=== PATIENT | female | born 1955 | race Two or more races ===

== ENCOUNTER 2018-10-22 08:38 | Emergency (ER) | payer OTHER ==
[2018-10-22 09:04] VITALS: TEMP 97.7; BMI 37.2
[2018-10-22] MEDS ORDERED: SODIUM CHLORIDE 1,000 ML IV STA (09:33)
[2018-10-22] MEDS ORDERED: ACETAMINOPHEN 325 MG TABLET (FP) PO ONE (09:36)
[2018-10-22] MEDS ORDERED: LORazepam 2 MG/ML SDV VIAL ONE (09:37)
[2018-10-22] MEDS ORDERED: ACETAMINOPHEN 325 MG TABLET (FP) ONE (09:53)
[2018-10-22 09:58] LABS: BASO % 0.6 % (0-2.0); EOS % 1.6 % (0-4.5); HEMATOCRIT 39.9 % (32.4-45.2); HEMOGLOBIN 13.7 GM/dL (10.7-15.3); LYMPH % 29.8 % (8-40); MCH 31.7 pg (25.7-33.7); MCHC 34.3 g/dl (32.0-36.0); MEAN CELL VOLUME 92.6 fl (80-96); MEAN PLT VOLUME 8.2 fl (7.5-11.1); MONO % 6.6 % (3.8-10.2); NEUT % 61.4 % (42.8-82.8); PLATELET COUNT 213 K/MM3 (134-434); RBC 4.31 M/mm3 (3.60-5.2); RDW 14.3 % (11.6-15.6); WHITE BLOOD COUNT 5.8 K/mm3 (4.0-10.0)
--- NOTE | 2018-10-22 10:08 | PDOC ---
Documentation entered by Joshua Darnell SCRIBE, acting as scribe for Bernadine Torres MD. Bernadine Torres MD: This documentation has been prepared by the Mann gatic[employer] Joel, SCRIBE, under my direction and personally reviewed by me in its entirety. I confirm that the documentation accurately reflects all work, treatment, procedures, and medical decision making performed by me. History of Present Illness - General Chief Complaint: Lightheaded Stated Complaint: DIZZINESS,WEAKNESS Time Seen by Provider: 10/22/18 09:10 History Source: Patient Exam Limitations: No Limitations - History of Present Illness Initial Comments: 10/22/18 10:10 The patient is a 63 year old female with a significant PMH of vertigo, HTN, pre- diabetes, hyperlipidemia, fibromyalgia, sciatica and arthritis who presents to the emergency department for evaluation of acute onset of vertigo, dizziness and nausea beginning approximately 5 hours ago. The patient reports waking up at about 4am and trying to get off the bed when she experienced room-spinning sensation with associated epigastric pain and nausea. She reports taking Meclizine to some relief that she had leftover from a 07/2018 visit for similar episode of vertigo. The patient endorses left sided neck pain with radiation to the occipital region, dry throat, left ear pain, cough, bilateral eye pain with associated blurry vision, and increased urinary frequency since this morning ( but has been drinking water). The patient notes she was told she had vertigo in 07/2018, which she was prescribed Meclizine for the symptoms which she takes as needed. The patient also notes an episode of palpitations about 3 days ago that lasted a few minutes, and also experienced an episode of anterior chest pressure shortly after presentation to the ED. Denies fever, chills, SOB, weakness, V, D, bladder and bowel problems, leg swelling, No sick contacts or travel. No new changes in medications. No suspicious food intake. no environmental triggers. no stressors. denies falls or trauma/injuries Allergies: None Past Medical History: as documented in EMR/HPI Social history: Lives with family. No tobacco, ETOH or drug use. Surgical history: Parathyroidectomy. Meds: as documented in EMR PMD: Dr. Black 10/22/18 10:49 10/22/18 10:52 10/22/18 10:52 Past History - Past Medical History Allergies/Adverse Reactions: Allergies Allergy/AdvReac Type Severity Reaction Status Date / Time No Known Allergies Allergy Verified 10/22/18 09:33 Home Medications: Ambulatory Orders Cyclobenzaprine HCl [Flexeril 10 mg] 10 mg PO TID PRN #15 tablet 10/22/18 COPD: No HTN: Yes Hypercholesterolemia: Yes Other medical history: vertigo, fibronyalsia - Immunization History Immunization Up to Date: Yes - Suicide/Smoking/Psychosocial Hx Smoking History: Never smoked Hx Alcohol Use: No Drug/Substance Use Hx: No Review of Systems - Review of Systems Able to Perform ROS?: Yes Comments:: 10/22/18 10:15 Constitutional: no fevers or chills. HEENT: (+) Blurry vision. (+) Bilateral eye pain. +ear pain. no headache. No congestion. No hearing disturbances. CVS: (+) Anterior chest pressure. + palpitations. no syncope. Resp: (+) Cough. no sob. Gastrointestinal: (+) Epigastric pain. (+) Nausea. no vomiting. no diarrhea. Genitourinary: (+) Increased urinary frequency. no hematuria. MUSCULOSKELETAL: (+) Neck pain with radiation to occipital region. (+) Chronic lower back pain from sciatica. +right knee pain. No joint pain and swelling. SKIN: no redness or skin changes, no discharge, no rash. No wounds. Hematologic: no easy bruising/bleeding. NEUROLOGIC: (+) Dizziness. No headache, LOC or altered mental status. No weakness, numbness or tingling. Psych: no anxiety or depression Allergic/Immunologic: no allergies All other systems reviewed and negative, or as documented in HPI. 10/22/18 10:51 *Physical Exam - Vital Signs Last Vital Signs Temp Pulse Resp BP Pulse Ox 97.7 F 62 18 148/85 99 10/22/18 09:01 10/22/18 09:01 10/22/18 09:01 10/22/18 09:01 10/22/18 09:01 - Physical Exam Comments: 10/22/18 10:17 General: Well appearing, awake and alert, NAD. HEENT: NCAT, PERRL, EOMI, No nystagmus. clear conjunctiva, anicteric, moist mucus membranes, clear oropharynx, no oral lesions.. Neck: neck supple, FROM Resp: CTAB, normal and even respirations, no respiratory distress CVS: RRR, no murmurs, 2+ peripheral pulses throughout, no peripheral edema Abdomen: soft, NTND, no peritoneal signs. Back: nontender, normal inspection and ROM MSK: (+) Upper thoracic muscular tenderness to palpation. (+) Diffuse lower back pain tenderness. (+) Left trapezius tenderness. no edema, PITT x4, ROM intact. No clubbing or cyanosis. normal bulk and tone. Neuro: alert, no focal neuro deficits, oriented to person time and place. No carotid bruit, CN II-XII grossly intact. Strength prox and distally 5/5 throughout. Sensation grossly intact to light touch. PITT x4. No cerebellar signs , no dysmetria, bilateral finger to nose and heel to renteria equal and symmetric. Speech clear. gait stable. Psych: calm and cooperative Skin: warm and well perfused, cap refill <2 sec, normal color 10/22/18 10:51 Heart Score/ECG Review #1 ECG reviewed & interpreted by me at: 09:40 General ECG Interpretation: Sinus Rhythm, Normal Rate, Normal Intervals Compared to previous ECG there are: Previous ECG unavail 10/22/18 10:07 EKG normal sinus rhythm at 60 bpm, no interval abnormalities, narrow QRS, ST and T wave segments and morphology normal. Nonspecific T wave abnormalities with TWI in inferior leads III, AVF ED Treatment Course - LABORATORY CBC & Chemistry Diagram: 10/22/18 09:30 10/22/18 09:30 - RADIOLOGY Radiology Studies Ordered: Category Date Time Status CHEST PA & LAT [RAD] Stat Radiology 10/22/18 09:33 Ordered - Medications Given in the ED: ED Medications Discontinued Medications Generic Name Dose Route Start Last Admin Trade Name Freq PRN Reason Stop Dose Admin Acetaminophen 975 mg 10/22/18 09:36 10/22/18 09:54 Tylenol - PO 10/22/18 09:37 975 mg ONCE ONE Administration Lorazepam 1 mg 10/22/18 09:35 10/22/18 09:49 Ativan Injection - IVPUSH 10/22/18 09:36 1 mg ONCE ONE Administration Medical Decision Making - Medical Decision Making 10/22/18 10:06 See HPI for details. Prior notes reviewed, including admissions, discharges and consultations. Vital signs reviewed, wnl. Vital Signs Temp Pulse Resp BP Pulse Ox 97.7 F 62 18 148/85 99 10/22/18 09:01 10/22/18 09:01 10/22/18 09:01 10/22/18 09:01 10/22/18 09:01 DDX vertigo, BPPV, labrynthitis, ACS, arrhythmia, angina, anemia, electrolyte/ metabolic derangements. back strain/spasm. msk strain. no infectious etiology. laboratory results and imaging reviewed, basic labs and lytes wnl, notable for normal LFts CXR_no acute chest pathology Cardiac panel_neg x1, reassuring. will need serial trop with chest pressure here. EKG normal sinus rhythm at 60 bpm, no interval abnormalities, narrow QRS, ST and T wave segments and morphology normal. Nonspecific T wave abnormalities with TWI in inferior leads III, AVF ED course -interventions: analgesia, IV ativan for vertigo/muscle spasms - back pain very reproducible, over left lateral trapezius as well. sciatica was induced with msk movements - neuro intact, no focal deficits, no ataxia, ambulatory, no focal findings. no imaging indicated at this time, as doubt central etiology of vertigo - 2 trops/EKG - unchanged, repeat EKG unchanged, nonspecific T wave abnormalities, no elevations of ST segments - on reassessment, symptoms improved, ambulatory. no cp or sob, comfortable with discharge and f/u cards/neuro for vertigo/chest pain - flexeril prn for muscle relaxants. Pt to be discharged in stable condition. Patient and family made aware of clinical impression, treatment recommendations and disposition plan, return precautions discussed (including but not limited to new or persistent/worsening symptoms, pain, fevers, or signs of infection, chest pain, respiratory distress , inability to tolerate oral intake, dehydration, syncope, or neurologic changes ). Follow up with PMD and/or specialists as recommended, follow up information provided, take medications as instructed for duration of time. continue with supportive care, avoid triggers and precipitants. All questions answered to patient's satisfaction and expressed understanding and comfort with this. At the time of discharge, the patient is alert, clinically improved, tolerating po and verbalizes understanding of instructions, satisfied with the care received and felt comfortable with the plan. Patient does not suffer from an acute life- threatening medical condition at this time and is safe for outpatient follow- up. 10/22/18 14:43 *DC/Admit/Observation/Transfer Diagnosis at time of Disposition: Vertigo Chest pain Qualifiers: Chest pain type: unspecified Qualified Code(s): R07.9 - Chest pain, unspecified Back pain Qualifiers: Back pain location: back pain in unspecified location Chronicity: unspecified Back pain laterality: unspecified Qualified Code(s): M54.9 - Dorsalgia, unspecified Trapezius muscle strain Qualifiers: Encounter type: initial encounter Laterality: unspecified laterality Qualified Code(s): S46.819A - Strain of other muscles, fascia and tendons at shoulder and upper arm level, unspecified arm, initial encounter - Discharge Dispostion Disposition: HOME Condition at time of disposition: Good Decision to Admit order: No - Prescriptions Prescriptions: Cyclobenzaprine HCl [Flexeril 10 mg] 10 mg PO TID PRN #15 tablet PRN Reason: Muscle Spasms - Referrals Referrals: Damion Black MD [Non Staff, Medical] - Leonid Valentin MD [Staff Physician] - Karl Cruz MD [Staff Physician] - Mario Valles DO [Staff Physician] - Blaa Lund MD [Staff Physician] - Zia Timmons MD [Staff Physician] - - Patient Instructions Printed Discharge Instructions: DI for Vertigo, DI for Chest Pain, DI for Thoracic Back Pain, DI for Low Back Pain, DI for Sciatica Additional Instructions: 1) Please follow-up with your primary care doctor in the next 1-2 days. Please call tomorrow for for any urgent issues. Neurologist referrals given for management of your vertigo/dizziness cardiologists also given for your chest pain 2) You were given a copy of the tests performed today. Please bring the results with you and review them with your primary care doctor. Your laboratory / imaging results were normal, including your cardiac enzymes 3) If you have any worsening of symptoms or any other concerns please return to the ED immediately. Return if worsening symptoms including fevers, headache, vomiting, visual or hearing disturbances, abdominal pain, chest pain, shortness of breath, syncope, dehydration, inability to take things by mouth/vomiting, altered mental status, or worsening concerning symptoms. 4) Please continue taking your home medications as directed. your medications on discharge include Meclizine (which you have at home) take this three times a day as needed for dizziness . side effects may include upset stomach, abdominal pain, vomiting, or diarrhea. do not drink alcohol with your medications. this can cause you to feel sleepy as well, so avoid driving or operating machinery Stay well hydrated and rest adequately. Make an appointment. If you cannot follow-up with your primary care doctor please return to the ED 1) Leona un seguimiento con eisenberg mdico de atencin primaria en los prximos 1-2 woodson. Llame maana para cualquier problema urgente. Referencias de neurlogos para el manejo de vrtigo / mareos. cardilogos tambin administrados para el dolor en el pecho 2) Le dieron manuela copia de las pruebas realizadas hoy. Traiga los resultados con usted y revselos con eisenberg mdico de atencin primaria. Los resultados de eisenberg laboratorio / imagen fueron normales, incluidas satya enzimas cardacas. 3) Si tiene algn empeoramiento de los sntomas o cualquier otra inquietud, regrese al servicio de urgencias de inmediato. Regrese si empeora los sntomas, karly fiebre, dolor de yen, vmitos, trastornos visuales o auditivos, dolor abdominal, dolor en el pecho, falta de aliento, sncope, deshidratacin, incapacidad para bibiana cosas por la boca / vmitos, estado mental alterado o empeoramiento de los sntomas. 4) Contine tomando satya medicamentos caseros segn las indicaciones. satya medicamentos al hussain incluyen Meclizine (que tiene en casa) tome esto malka veces al da segn sea necesario para mareos. Los efectos secundarios pueden incluir malestar estomacal, dolor abdominal, vmitos o diarrea. No tome alcohol con satya medicamentos. esto tambin puede causarle sueo, as que evite conducir u operar maquinaria Mantngase nabeel hidratado y descanse adecuadamente. Leona manuela freddie Si no puede hacer un seguimiento con eisenberg mdico de atencin primaria, regrese al servicio de urgencias Print Language: MONGOLIAN - Post Discharge Activity
[2018-10-22 10:21] LABS: ALBUMIN 3.8 g/dl (3.4-5.0); BILIRUBIN,TOTAL 0.4 mg/dL (0.2-1); BLOOD UREA NITROGEN 12.3 mg/dL (7-18); CALCIUM 9.3 mg/dL (8.5-10.1); CREATININE 0.5 mg/dL (0.55-1.3); POTASSIUM 4.6 mmol/L (3.5-5.1); TOT PROT 7.4 g/dl (6.4-8.2)
--- NOTE | 2018-10-22 14:25 | EKG ---
Test Reason : Blood Pressure : / mmHG Vent. Rate : 060 BPM Atrial Rate : 060 BPM P-R Int : 162 ms QRS Dur : 088 ms QT Int : 426 ms P-R-T Axes : 021 086 -11 degrees QTc Int : 426 ms NORMAL SINUS RHYTHM POSSIBLE LEFT ATRIAL ENLARGEMENT ABNORMAL QRS-T ANGLE, CONSIDER PRIMARY T WAVE ABNORMALITY ABNORMAL ECG NO PREVIOUS ECGS AVAILABLE Confirmed by MAGNOLIA LAUREN MD ([id number]) on 10/22/2018 2:25:15 PM Referred By: Confirmed By:MAGNOLIA LAUREN MD
--- NOTE | 2018-10-22 14:31 | EKG ---
Test Reason : Blood Pressure : / mmHG Vent. Rate : 068 BPM Atrial Rate : 068 BPM P-R Int : 162 ms QRS Dur : 090 ms QT Int : 406 ms P-R-T Axes : 044 -38 093 degrees QTc Int : 431 ms NORMAL SINUS RHYTHM LEFT AXIS DEVIATION NONSPECIFIC T WAVE ABNORMALITY ABNORMAL ECG WHEN COMPARED WITH ECG OF 22-OCT-2018 09:39, QRS AXIS SHIFTED LEFT NON-SPECIFIC CHANGE IN ST SEGMENT IN INFERIOR LEADS T WAVE INVERSION NO LONGER EVIDENT IN INFERIOR LEADS NONSPECIFIC T WAVE ABNORMALITY, WORSE IN LATERAL LEADS Confirmed by XIN LEVINE, MAGNOLIA ([id number]) on 10/22/2018 2:30:48 PM Referred By: Confirmed By:MAGNOLIA LAUREN MD
[2018-10-22 15:26] VITALS: BP 130/71; PULSE 71
--- NOTE | 2018-10-23 14:06 | EKG ---
Test Reason : Blood Pressure : / mmHG Vent. Rate : 067 BPM Atrial Rate : 067 BPM P-R Int : 164 ms QRS Dur : 090 ms QT Int : 372 ms P-R-T Axes : 040 -36 108 degrees QTc Int : 393 ms NORMAL SINUS RHYTHM LEFT AXIS DEVIATION SEPTAL INFARCT , AGE UNDETERMINED ABNORMAL ECG WHEN COMPARED WITH ECG OF 22-OCT-2018 09:39, QRS AXIS SHIFTED LEFT ST NOW DEPRESSED IN INFERIOR LEADS NONSPECIFIC T WAVE ABNORMALITY, WORSE IN LATERAL LEADS Confirmed by CALEB DUKES MD ([id number]) on 10/23/2018 2:06:01 PM Referred By: Confirmed By:CALEB DUKES MD
== END 2018-10-22 15:30 | disposition home or self-care (01) ==
LOC: JER 08:38
PROC: 3E033NZ Introduction of Analgesics, Hypnotics, Sedatives into Peripheral Vein, Percutaneous Approach (ICD-10-PCS; principal; 2018-10-22)
PROC: 3E0337Z Introduction of Electrolytic and Water Balance Substance into Peripheral Vein, Percutaneous Approach (ICD-10-PCS; 2018-10-22)
DX: R42 Dizziness and giddiness (principal); S46.819A Strain of other muscles, fascia and tendons at shoulder and upper arm level, unspecified arm, initial encounter; M54.9 Dorsalgia, unspecified; R07.9 Chest pain, unspecified; X58.XXXA Exposure to other specified factors, initial encounter; Y93.89 Activity, other specified; Y92.89 Other specified places as the place of occurrence of the external cause; R73.03 Prediabetes; I10 Essential (primary) hypertension; E78.5 Hyperlipidemia, unspecified; M54.30 Sciatica, unspecified side
CPT/HCPCS: 36415; 71046-TC-FY; 80053; 83735; 84484; 85025; 93005; 93010; 96361; 96374; 99284-25; J7030

== ENCOUNTER 2018-12-16 11:25 | Inpatient (IN) | payer OTHER ==
--- NOTE | 2018-12-16 12:12 | EKG ---
Test Reason : Blood Pressure : / mmHG Vent. Rate : 069 BPM Atrial Rate : 069 BPM P-R Int : 154 ms QRS Dur : 088 ms QT Int : 458 ms P-R-T Axes : 044 -24 037 degrees QTc Int : 490 ms POOR DATA QUALITY, INTERPRETATION MAY BE ADVERSELY AFFECTED NORMAL SINUS RHYTHM POSSIBLE LEFT ATRIAL ENLARGEMENT NONSPECIFIC T WAVE ABNORMALITY ABNORMAL ECG WHEN COMPARED WITH ECG OF 22-OCT-2018 13:35, NONSPECIFIC T WAVE ABNORMALITY, IMPROVED IN LATERAL LEADS QT HAS LENGTHENED Confirmed by MD Yuki, Abdoul ([id number]) on 12/16/2018 12:12:15 PM Referred By: Confirmed By:Abdoul Mirza MD
--- NOTE | 2018-12-16 13:24 | PDOC ---
History of Present Illness - History of Present Illness Initial Comments: 12/16/18 13:18 63 year old female with PMH significant for vertigo, HTN, HLD, fibromyalgia, and pre-DM. 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 Flores) when she started developing chest pain, and was referred to the ER. She states that she has had intermittent chest pain for the past 4 months, mostly on the left side of her chest, with episodes lasting 2-4 hours, gradual in onset, and dull in nature, reproducible on palpation and non-pleuritic. The chest pain is associated with left hand shooting pain that she has had for the past 9 months. The pain initially began in the 2nd and 3rd fingers of the left hand, radiating up to the elbow, exacerbated by movement of the arm. Her PCP told her that this was a symptom of her Fibromyalgia, and she received and injection in her left elbow 4 months ago, which she claims did not help. Around 5 months ago, the pain began to radiate past her left elbow, all the way to her chest. The pain is associated with some mild SOB and a headache. She also complains of intermittent RUQ and RLQ abdominal pain with lower back pain for the past 3 months. She has associated brown discoloration of the urine , but no associated nausea, vomiting, diarrhea, dysuria, or hematuria. She has been taking Paroxetine since 1996, which she discontinued 2 months ago. She has had no other changes to her medication, and denies any recent illnesses , exposure to sick contacts, or recent travel. <Heath Jones - Last Filed: 12/16/18 16:27> <Bernadine Torres - Last Filed: 12/18/18 09:45> - General Stated Complaint: SENT BY /CHEST PAIN Time Seen by Provider: 12/16/18 12:09 Past History - Past Medical History COPD: No HTN: Yes Hypercholesterolemia: Yes - Immunization History Immunization Up to Date: Yes - Psycho Social/Smoking Cessation Hx Smoking History: Unknown if ever smoked Hx Alcohol Use: No Drug/Substance Use Hx: No <Heath Jones - Last Filed: 12/16/18 16:27> <Bernadine Torres - Last Filed: 12/18/18 09:45> - Past Medical History Allergies/Adverse Reactions: Allergies Allergy/AdvReac Type Severity Reaction Status Date / Time No Known Allergies Allergy Verified 12/16/18 11:43 Home Medications: Ambulatory Orders Amlodipine Besylate [Norvasc -] 5 mg PO DAILY 12/16/18 Duloxetine HCl [Cymbalta] 30 mg PO DAILY 12/16/18 Nortriptyline HCl [Pamelor -] 10 mg PO HS 12/16/18 Paroxetine HCl [Paxil] 20 mg PO DAILY 12/16/18 Polyvinyl Alcohol [Artificial Tears] 1 drop OU ASDIR 12/16/18 Ranitidine [Zantac -] 300 mg PO HS 12/16/18 Simvastatin 40 mg PO HS 12/16/18 Aspirin Coated [Ecotrin -] 81 mg PO DAILY tablet.ec 12/17/18 Review of Systems - Review of Systems Constitutional: No: Symptoms Reported, See HPI, Chills, Diaphoresis, Fever, Loss of Appetite, Malaise, Night Sweats, Weakness, Weight Stable, Unintentional Wgt. Loss, Unexplained wgt Loss, Other HEENTM: No: Symptoms Reported, See HPI, Eye Pain, Blurred Vision, Tearing, Recent change in vision, Double Vision, Cataracts, Ear Pain, Ocular Prothesis, Ear Discharge, Nose Pain, Nose Congestion, Tinnitus, Nose Bleeding, Hearing Loss , Throat Pain, Throat Swelling, Mouth Pain, Dental Problems, Difficulty Swallowing, Mouth Swelling, Other Respiratory: Yes: Shortness of Breath Cardiac (ROS): Yes: Chest Pain, Lightheadedness ABD/GI: Yes: Abdominal cramping : No: Symptoms Reported, See HPI, Burning, Dysuria, Discharge, Frequency, Flank Pain, Hematuria, Incontinence, Pain, Urgency, Testicular Mass, Testicular Swelling, Lesions, Testicular Pain, Other Musculoskeletal: Yes: See HPI Integumentary: No: Symptoms Reported, See HPI, Bruising, Change in Color, Change in Hair/Nails, Dryness, Erythema, Flushing, Lesions, Lumps, Pallor, Pruritus, Rash, Sweating, Other Neurological: Yes: Weakness Psychiatric: No: Anxiety, Depression, Frequent Crying, Stressors, Sleep Pattern Change, Emotional Problems, Mood Swings, Change in Appetite, Other Endocrine: No: Symptoms Reported, See HPI, Excessive Sweating, Flushing, Intolerance to Cold, Intolerance to Heat, Increased Hunger, Increased Thirst, Increased Urine, Unexplained Weight Gain, Unexplained Weight Loss, Change in Weight, Other Hematologic/Lymphatic: No: Symptoms Reported, See HPI, Anemia, Blood Clots, Easy Bleeding, Easy Bruising, Bleeding Diathesis, Lymph Node Abnormalities, Swollen Glands, Other <Heath Jones - Last Filed: 12/16/18 16:27> *Physical Exam - Vital Signs Last Vital Signs Temp Pulse Resp BP Pulse Ox 98.2 F 74 17 139/81 96 12/16/18 11:49 12/16/18 11:49 12/16/18 11:49 12/16/18 11:49 12/16/18 11:49 - Physical Exam Comments: 12/16/18 13:43 General: AOx3, cooperative Eyes: QUAN, EOM intact Nares: patent, no DC Ears: patent, no DC CVS: RRR, S1 S2 appreciated Lungs: B/L clear Abdomen: SOft, tenderness in epigastrium, RUQ, RLQ, suprapubic, Psoas Rovsing and Shah's negative Extremities: No pitting edema Neuro: Motor 4/5 in left arm (due to pain), 5/5 everywhere else Sensations intact B/L CN II-XII intact Cerebellar: No nystagmus, finger to nose, heel to renteria, Romberg, rapid alternating movements all negative <Heath Jones - Last Filed: 12/16/18 16:27> - Vital Signs Last Vital Signs Temp Pulse Resp BP Pulse Ox 98.1 F 84 18 140/104 H 96 12/17/18 14:00 12/17/18 14:00 12/17/18 09:00 12/17/18 14:00 12/17/18 09:00 <Bernadine Torres - Last Filed: 12/18/18 09:45> Heart Score/ECG Review - Electrocardiogram EKG: Normal - Age Age: 45-65 - Risk Factors Risk Factors Heart Score: Yes Hx Hypertension, Yes Positive family hx of cardiac disease, Yes Hx Obesity Based on the list above the patient has:: >/=3 risk factors or Hx atherosclerotic disease - Troponin Troponin: </= normal limit - ECG Intrepretation Rhythm: Regular Rhythm - State University State University: Normal - ST and T Early Repolarization: No Non Specific ST-T Wave changes: No - ECG Impressions Normal ECG: Yes Comment:: 12/16/18 16:27 EKG normal sinus rhythm at 69 bpm, no interval abnormalities, narrow QRS, ST and T wave segments and morphology normal. Nonspecific T wave abnormalities <Heath Jones - Last Filed: 12/16/18 16:27> ED Treatment Course - LABORATORY CBC & Chemistry Diagram: 12/16/18 13:30 12/16/18 13:20 <Heath Jones - Last Filed: 12/16/18 16:27> - LABORATORY CBC & Chemistry Diagram: 12/17/18 06:15 12/17/18 06:15 - ADDITIONAL ORDERS Additional order review: 12/16/18 15:20 Urine Culture - Final Urine - Urine Clean Catch Streptococcus Viridans 12/16/18 13:30 RBC 4.31 MCV 91.9 MCHC 34.1 RDW 13.8 MPV 8.0 Neutrophils % 47.6 D Lymphocytes % 40.5 H D Monocytes % 8.3 Eosinophils % 2.7 Basophils % 0.9 - Medications Given in the ED: ED Medications Discontinued Medications Generic Name Dose Route Start Last Admin Trade Name Freq PRN Reason Stop Dose Admin Amlodipine Besylate 5 mg 12/17/18 10:00 12/17/18 09:26 Norvasc - PO 5 mg DAILY VICTORINO Administration Artificial Tears 1 drop 12/16/18 16:30 12/16/18 18:49 Artificial Tears OU Not Given ASDIR VICTORINO Artificial Tears 1 drop 12/16/18 18:00 12/17/18 14:57 Artificial Tears OU 1 drop QID VICTORINO Administration Aspirin 81 mg 12/17/18 10:00 12/17/18 13:29 Ecotrin - PO 81 mg DAILY VICTORINO Administration Aspirin 81 mg 12/16/18 15:59 12/16/18 16:00 Asa - PO 12/16/18 16:00 81 mg ONCE ONE Administration Atorvastatin Calcium 40 mg 12/16/18 22:00 12/16/18 22:36 Lipitor - PO 40 mg HS VICTORINO Administration Duloxetine HCl 30 mg 12/17/18 10:00 12/17/18 13:29 Cymbalta - PO 30 mg DAILY VICTORINO Administration Nortriptyline HCl 10 mg 12/16/18 22:00 12/16/18 22:36 Pamelor - PO 10 mg HS VICTORINO Administration Paroxetine HCl 20 mg 12/17/18 10:00 12/17/18 13:29 Paxil - PO 20 mg DAILY VICTORINO Administration Pneumococcal Polyvalent Vaccine 0.5 ml 12/17/18 10:00 12/17/18 13:34 Pneumovax - IM 12/17/18 10:01 Not Given .ONCE ONE Ranitidine HCl 300 mg 12/16/18 22:00 12/16/18 22:36 Zantac - PO 300 mg HS VICTORINO Administration <Bernadine Torres - Last Filed: 12/18/18 09:45> Medical Decision Making - Medical Decision Making 12/16/18 13:49 #Chest pain - Trops ordered - Repeat EKG - CXR #Abdominal pain - CBC, CMP - UA, Urine cx - Lipase - Ultrasound RUQ: Borderline hepatomegaly w fatty infiltration vs hepatocellular disease, 1.4cm nonobs stone in R mid kidney, no hydronephrosis 12/16/18 16:18 - Spoke to Dr. Flores who explained that patient was sent from his office because she was unable to have a stress test after she was found to have elevated BP. Will admit and attempt stress test tomorrow - Patient admitted under [facility], spoke to admitting physician <Heath Jones - Last Filed: 12/16/18 16:27> *DC/Admit/Observation/Transfer - Discharge Dispostion Decision to Admit order: Yes <Heath Jones - Last Filed: 12/16/18 16:27> - Discharge Dispostion Decision to Admit order: Yes <Bernadine Torres - Last Filed: 12/18/18 09:45> Diagnosis at time of Disposition: Atypical chest pain - Discharge Dispostion Condition at time of disposition: Good Discharge <Heath Jones - Last Filed: 12/16/18 16:27> - Discharge Information Problems reviewed: Yes <Bernadine Torres - Last Filed: 12/18/18 09:45> - Discharge Information Clinical Impression/Diagnosis: Atypical chest pain Condition: Improved Disposition: HOME
[2018-12-16 13:54] LABS: BASO % 0.9 % (0-2.0); EOS % 2.7 % (0-4.5); HEMATOCRIT 39.6 % (32.4-45.2); HEMOGLOBIN 13.5 GM/dL (10.7-15.3); LYMPH % 40.5 % (8-40); MCH 31.3 pg (25.7-33.7); MCHC 34.1 g/dl (32.0-36.0); MEAN CELL VOLUME 91.9 fl (80-96); MONO % 8.3 % (3.8-10.2); NEUT % 47.6 % (42.8-82.8); PLATELET COUNT 225 K/MM3 (134-434); RBC 4.31 M/mm3 (3.60-5.2); RDW 13.8 % (11.6-15.6); WHITE BLOOD COUNT 6.4 K/mm3 (4.0-10.0)
[2018-12-16 14:20] LABS: ALBUMIN 4.1 g/dl (3.4-5.0); BILIRUBIN,TOTAL 0.3 mg/dL (0.2-1); BLOOD UREA NITROGEN 8.3 mg/dL (7-18); CALCIUM 9.7 mg/dL (8.5-10.1); CREATININE 0.5 mg/dL (0.55-1.3); POTASSIUM 3.8 mmol/L (3.5-5.1); TOT PROT 7.5 g/dl (6.4-8.2)
--- NOTE | 2018-12-16 15:50 | CON.CARD ---
Consult Consult Specialty:: Cardiology Referred by:: SHAHAB LEVINE Reason for Consultation:: HTN and CP - History of Present Illness Chief Complaint: Sent from office for elevated BP prior to stress History of Present Illness: 63F depression, HTN, HLD with > 6 months atypical chest pain recently seen in office referred for outpt stress. At stress exam today, BP 160s/110 sent to ER by HAND CLIPPER for uncontrolled BP. Stress not done. In ER, BP essentially WNL/borderline elevated. She states her pain is central, random, not exertional. No jaw sx, no N/V or diaphoresis. Chronic OLSON. Has chronic MSK arm pain, worse with movement of shoulder and this movement also causes some radiation to chest. - History Source History Provided By: Patient Limitations to Obtaining History: No Limitations - Past Medical History Cardio/Vascular: Yes: HTN, Hyperlipdemia Pulmonary: No: Asthma, Bronchitis, Cancer, COPD, O2 Dependent, Pneumonia, Previously Intubated, Pulmonary Embolus, Pulmonary Fibrosis, Sleep Apnea, Other Gastrointestinal: Yes: GERD Hepatobiliary: No: Cirrhosis, Cholelithiasis, Cholecystitis, Choledocholithiasis , Hepatitis A, Hepatitis B, Hepatitis C, Other Renal/: No: Renal Failure, Renal Inusuff, BPH, Cancer, Hematuria, Hemodialysis , Neurogenic Bladder, Renal Calculi, UTI, Other Psych: Yes: Depression - Alcohol/Substance Use Hx Alcohol Use: No - Smoking History Smoking history: Unknown if ever smoked - Social History History of Recent Travel: No Home Medications - Allergies Allergies/Adverse Reactions: Allergies Allergy/AdvReac Type Severity Reaction Status Date / Time No Known Allergies Allergy Verified 12/16/18 11:43 - Home Medications Home Medications: Ambulatory Orders Amlodipine Besylate [Norvasc -] 5 mg PO DAILY 12/16/18 Duloxetine HCl [Cymbalta] 30 mg PO DAILY 12/16/18 Nortriptyline HCl [Pamelor -] 10 mg PO HS 12/16/18 Paroxetine HCl [Paxil] 20 mg PO DAILY 12/16/18 Polyvinyl Alcohol [Artificial Tears] 1 drop OU ASDIR 12/16/18 Ranitidine [Zantac -] 300 mg PO HS 12/16/18 Simvastatin 40 mg PO HS 12/16/18 Family Medical History Family History: Unremarkable (no early CAD or SCD) Review of Systems - Review of Systems Constitutional: reports: No Symptoms Eyes: reports: No Symptoms HENT: reports: No Symptoms Cardiovascular: reports: Chest Pain, Shortness of Breath Respiratory: reports: SOB on Exertion Gastrointestinal: denies: No Symptoms, Abdominal Pain, Bloating, Constipation, Diarrhea, Dysphagia, Indigestion, Melena, Nausea, Rectal Bleeding, Vomiting, Vomiting Blood, Other Genitourinary: denies: No Symptoms, Burning, Discharge, Dysuria, Flank Pain, Frequency, Hematuria, Incontinence, Lesions, Menses, Pain, Testicular Mass, Testicular Pain, Testicular Swelling, Urgency, Vaginal Bleeding, Other Breasts: denies: No Symptoms Reported, See HPI, Breast Implants, Discharge from Nipple, Lumps, Pain, Skin Changes, Other Musculoskeletal: reports: Joint Pain, Other (left arm pain, shoulder pain w/ movement and change of position) Neurological: denies: No Symptoms, Change in LOC, Change in Speech, Confusion, Dizziness, Headache, Incoordination, Numbness, Parasthesia, Pre-Existing Deficit , Seizure, Syncope, Tremors, Unsteady Gait, Weakness, Other Endocrine: reports: No Symptoms Hematology/Lymphatic: reports: No Symptoms Psychiatric: reports: No Symptoms - Risk Factors Known Risk Factors: Yes: Hypercholesterolemia, Hypertension Vital Signs: Vital Signs Temperature 98.2 F 12/16/18 11:49 Pulse Rate 74 12/16/18 11:49 Respiratory Rate 17 12/16/18 11:49 Blood Pressure 139/81 12/16/18 11:49 O2 Sat by Pulse Oximetry (%) 96 12/16/18 11:49 Constitutional: Yes: No Distress, Calm Eyes: Yes: Conjunctiva Clear, EOM Intact HENT: Yes: Atraumatic, Normocephalic Neck: Yes: Trachea Midline Respiratory: Yes: CTA Bilaterally Gastrointestinal: Yes: Soft, Abdomen, Obese Cardiovascular: Yes: Regular Rate and Rhythm JVD: No PMI: Non-Displaced Heart Sounds: Yes: S1, S2 (rrr, no m/r/g) Edema: No Peripheral Pulses WNL: Yes Neurological: Yes: Alert, Oriented ...Motor Strength: WNL Psychiatric: Yes: WNL - Other Data Labs, Other Data: CBC, BMP 12/16/18 13:30 12/16/18 13:20 Troponin, BNP 12/16/18 13:30 Troponin I < 0.02 Troponin, BNP 12/16/18 13:30 Troponin I < 0.02 Laboratory Tests 12/16/18 12/16/18 12/16/18 13:20 13:30 13:30 WBC 6.4 Hgb 13.5 Plt Count 225 Sodium 139 Potassium 3.8 Creatinine 0.5 L Creatine Kinase 104 Troponin I < 0.02 Imaging - Results Chest X-ray: Image Reviewed (no acute path) Ultrasound: Report Reviewed (renal stone, non-obstx) EKG: Image Reviewed (NSR, LAE, NSST) Assessment/Plan IMP: HTN, chronic Chest pain syndrome, chronic: suspect MSK HLD GERD Renal stone, non-obstx/ incidental REC: 1. Echo 2. Exercise MPI in AM 3. Usual home BP meds 4. Outpatient Urology eval for renal stone.
--- NOTE | 2018-12-16 15:53 | PDOC ---
Attending Attestation - Resident Resident Name: Heath Jones - ED Attending Attestation I have performed the following: I have examined & evaluated the patient, The case was reviewed & discussed with the resident, I agree w/resident's findings & plan - HPI HPI: 12/16/18 15:53 63 year old female with PMH significant for vertigo, HTN, HLD, fibromyalgia, and pre-DM. 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 Flores) when she started developing chest pain, and was referred to the ER. could not finish her stress test today with her chest pain. intermittent left sided chest and arm pain x 4 months. can last 2-4 hours, gradual, dull and reproducible a/w sharp shooting pains in her left hand x 9 months. Her PCP told her that this was a symptom of her Fibromyalgia, and she received and injection in her left elbow 4 months ago, which she claims did not help. Around 5 months ago, the pain began to radiate past her left elbow, all the way to her chest. The pain is associated with some mild SOB and a headache. She also complains of intermittent RUQ and RLQ abdominal pain with lower back pain for the past 3 months. She has associated brown discoloration of the urine , but no associated nausea, vomiting, diarrhea, dysuria, or hematuria. She has been taking Paroxetine since 1996, which she discontinued 2 months ago. She has had no other changes to her medication, and denies any recent illnesses , exposure to sick contacts, or recent travel. 12/16/18 15:53 12/16/18 16:00 - Physicial Exam PE: 12/16/18 15:53 Agree with the resident's HPI and PE as documented in the electronic medical record. NAD, well appearing, EOMI, PERRL, MMM, nl conjunctiva, anicteric; neck supple. lungs clear, RRR, abdomen soft nontender. Back nontender. PITT x4, no focal neuro deficits. No peripheral edema. normal color for ethnicity, WWP. - Medical Decision Making 12/16/18 15:54 See HPI for details. Prior notes reviewed, including admissions, discharges and consultations. Vital signs reviewed, wnl. Vital Signs Temp Pulse Resp BP Pulse Ox 98.2 F 74 17 139/81 96 12/16/18 11:49 12/16/18 11:49 12/16/18 11:49 12/16/18 11:49 12/16/18 11:49 DDx chest pain: ACS, coronary vasospasm, NSTEMI, arrhythmia, unstable angina, PE , dissection, PUD, esophageal spasm, GERD, gastritis, costochondritis, pneumonia , pleurisy, pericarditis/myocarditis. dehydration, electrolyte/metabolic derangements. laboratory results and imaging reviewed, basic labs and lytes wnl, LFTs/lipase_wnl UA_unremarkable. CXR_no acute chest pathology. clear. Cardiac panel_neg EKG normal sinus rhythm at 69 bpm, no interval abnormalities, narrow QRS, ST and T wave segments and morphology normal. Nonspecific T wave abnormalities ED course: no events. GB sono neg for stones or rafael. admit to complete stress test, cards cs Dr Flores, medical management, serial trops. 12/16/18 15:58 Heart Score/ECG Review #1 ECG reviewed & interpreted by me at: 11:40 General ECG Interpretation: Sinus Rhythm, Normal Rate, Normal Intervals Compared to previous ECG there are: No significant change 12/16/18 15:59 EKG normal sinus rhythm at 69 bpm, no interval abnormalities, narrow QRS, ST and T wave segments and morphology normal. Nonspecific T wave abnormalities
[2018-12-16] MEDS ORDERED: ASPIRIN 81 MG CHEWABLE TABLETS PO ONE (15:59)
--- NOTE | 2018-12-16 16:09 | HP ---
Admitting History and Physical - Primary Care Physician PCP: Tra Black - Admission Chief Complaint: chest pressure associated with epigastric pain radiating to right flank History of Present Illness: 63 year old female with PMH significant for vertigo, HTN, HLD, fibromyalgia, and pre-DM. 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 Flores) when she started developing chest pain, and was referred to the ER. She states that she has had intermittent chest pain for the past 4 months, mostly on the left side of her chest, with episodes lasting 2-4 hours, gradual in onset, and dull in nature, reproducible on palpation and non-pleuritic. The chest pain is associated with left hand shooting pain that she has had for the past 9 months. The pain initially began in the 2nd and 3rd fingers of the left hand, radiating up to the elbow, exacerbated by movement of the arm. Her PCP told her that this was a symptom of her Fibromyalgia, and she received and injection in her left elbow 4 months ago, which she claims did not help. Around 5 months ago, the pain began to radiate past her left elbow, all the way to her chest. The pain is associated with some mild SOB and a headache. She also complains of intermittent RUQ and RLQ abdominal pain with lower back pain for the past 3 months. She has associated brown discoloration of the urine , but no associated nausea, vomiting, diarrhea, dysuria, or hematuria. She has been taking Paroxetine since 1996, which she discontinued 2 months ago. She has had no other changes to her medication, and denies any recent illnesses , exposure to sick contacts, or recent travel. History Source: Patient Limitations to Obtaining History: No Limitations - Past Medical History Cardiovascular: Yes: HTN, Hyperlipdemia Pulmonary: No: Asthma, Bronchitis, Cancer, COPD, O2 Dependent, Pneumonia, Previously Intubated, Pulmonary Embolus, Pulmonary Fibrosis, Sleep Apnea, Other Gastrointestinal: Yes: GERD Hepatobiliary: No: Cirrhosis, Cholelithiasis, Cholecystitis, Choledocholithiasis , Hepatitis A, Hepatitis B, Hepatitis C, Other Renal/: No: Renal Failure, Renal Inusuff, BPH, Cancer, Hematuria, Hemodialysis , Neurogenic Bladder, Renal Calculi, UTI, Other Psych: Yes: Depression - Smoking History Smoking history: Unknown if ever smoked - Alcohol/Substance Use Hx Alcohol Use: No - Social History Usual Living Arrangement: Yes: With Child (lives with children) History of Recent Travel: No Home Medications - Allergies Allergies/Adverse Reactions: Allergies Allergy/AdvReac Type Severity Reaction Status Date / Time No Known Allergies Allergy Verified 12/16/18 11:43 - Home Medications Home Medications: Ambulatory Orders Amlodipine Besylate [Norvasc -] 5 mg PO DAILY 12/16/18 Duloxetine HCl [Cymbalta] 30 mg PO DAILY 12/16/18 Nortriptyline HCl [Pamelor -] 10 mg PO HS 12/16/18 Paroxetine HCl [Paxil] 20 mg PO DAILY 12/16/18 Polyvinyl Alcohol [Artificial Tears] 1 drop OU ASDIR 12/16/18 Ranitidine [Zantac -] 300 mg PO HS 12/16/18 Simvastatin 40 mg PO HS 12/16/18 Family Medical History Family History: Denies Review of Systems - Review of Systems Constitutional: reports: No Symptoms Eyes: reports: No Symptoms HENT: reports: No Symptoms Neck: reports: No Symptoms Cardiovascular: reports: Chest Pain, Shortness of Breath (on exertion) Respiratory: reports: Exercise Intolerance, SOB on Exertion Gastrointestinal: reports: Abdominal Pain Genitourinary: reports: No Symptoms Musculoskeletal: reports: No Symptoms Integumentary: reports: No Symptoms Neurological: reports: No Symptoms Endocrine: reports: No Symptoms Hematology/Lymphatic: reports: No Symptoms Psychiatric: reports: No Symptoms Physical Examination Vital Signs: Vital Signs Temperature 98.2 F 12/16/18 11:49 Pulse Rate 74 12/16/18 11:49 Respiratory Rate 17 12/16/18 11:49 Blood Pressure 139/81 12/16/18 11:49 O2 Sat by Pulse Oximetry (%) 96 12/16/18 11:49 Constitutional: Yes: Well Nourished, No Distress, Calm Eyes: Yes: WNL, Conjunctiva Clear, EOM Intact HENT: Yes: WNL, Atraumatic, Normocephalic Neck: Yes: WNL, Supple, Trachea Midline Cardiovascular: Yes: WNL, Regular Rate and Rhythm Respiratory: Yes: WNL, Regular, CTA Bilaterally Gastrointestinal: Yes: Normal Bowel Sounds, Soft, Tenderness (epigastric area) ...Rectal Exam: Yes: Deferred Breast(s): Yes: WNL Musculoskeletal: Yes: WNL Extremities: Yes: WNL Edema: Yes Peripheral Pulses WNL: Yes Integumentary: Yes: WNL Neurological: Yes: WNL, Alert, Oriented ...Motor Strength: WNL Psychiatric: Yes: WNL Labs: CBC, BMP 12/16/18 13:30 12/16/18 13:20 Imaging - Results Ultrasound: Report Reviewed (Ultrasound RUQ: Borderline hepatomegaly w fatty infiltration vs hepatocellular disease, 1.4cm nonobs stone in R mid kidney, no hydronephrosis) EKG: Report Reviewed (EKG normal sinus rhythm at 69 bpm, no interval abnormalities, narrow QRS, ST and T wave segments and morphology normal. Nonspecific T wave abnormalities) Problem List - Problems (1) Prophylactic measure Assessment/Plan: FEN low fat/chol diet NPO past midnight monitor electrolytes DVT ambulatory Dispo mainatin on tele until after stress test tmrw full code discharge planning Code(s): Z29.9 - ENCOUNTER FOR PROPHYLACTIC MEASURES, UNSPECIFIED (2) HLD (hyperlipidemia) Assessment/Plan: c/w atrovastain Code(s): E78.5 - HYPERLIPIDEMIA, UNSPECIFIED (3) HTN (hypertension) Assessment/Plan: normotensive c/w norvasc Code(s): I10 - ESSENTIAL (PRIMARY) HYPERTENSION (4) Depression Assessment/Plan: c/w cymbalta/paxil emotional support Code(s): F32.9 - MAJOR DEPRESSIVE DISORDER, SINGLE EPISODE, UNSPECIFIED (5) Atypical chest pain Assessment/Plan: appreciate cardiology consultation-Dr Flores stress test for tmrw Trop .02 c/w serial troponins Code(s): R07.89 - OTHER CHEST PAIN (6) Chest pain Code(s): R07.9 - CHEST PAIN, UNSPECIFIED Qualifiers: Chest pain type: unspecified Qualified Code(s): R07.9 - Chest pain, unspecified (7) Vertigo Assessment/Plan: not active Code(s): R42 - DIZZINESS AND GIDDINESS (8) Fibromyalgia Code(s): M79.7 - FIBROMYALGIA Visit type - Emergency Visit Emergency Visit: Yes ED Registration Date: 12/16/18 Care time: The patient presented to the Emergency Department on the above date and was hospitalized for further evaluation of their emergent condition. - New Patient This patient is new to me today: Yes Date on this admission: 12/16/18 - Critical Care Critical Care patient: No
[2018-12-16] MEDS ORDERED: ASPIRIN 81 MG CHEWABLE TABLETS ONE (16:18)
[2018-12-16] MEDS ORDERED: ARTIFICIAL TEARS (POLYVINYL ALCOHOL) OPTH DROPS OU SCH (16:30)
[2018-12-16 17:13] LABS: PH,URINE 6.5 (5.0-8.0); URINE APPEARANCE Clear; URINE BILIRUBIN Negative (NEGATIVE); URINE COLOR Yellow; URINE GLUCOSE (UA) Negative (NEGATIVE); URINE KETONE Negative (NEGATIVE); URINE LEUK ESTERASE Negative (NEGATIVE); URINE NITRITE Negative (NEGATIVE); URINE PROTEIN Negative (NEGATIVE); URINE UROBILINOGEN 0.2 mg/dL (0.2-1.0)
[2018-12-16 19:00] VITALS: BMI 37.5
[2018-12-16] MEDS: ARTIFICIAL TEARS (POLYVINYL ALCOHOL) OPTH DROPS OU SCH ×2 (19:00→22:36)
[2018-12-16] MEDS ORDERED: PT OWN MED DRAWER 7, Y5N ONE (21:50)
[2018-12-16] MEDS ORDERED: ATORVASTATIN CA 40 MG TABLET (FP) PO SCH (22:00)
[2018-12-16] MEDS ORDERED: RANITIDINE HCL 150 MG TABLET (FP) PO SCH (22:00)
[2018-12-16] MEDS ORDERED: NORTRIPTYLINE HCL 10 MG CAPSULE PO SCH (22:00)
[2018-12-17 07:04] LABS: BASO % 0.6 % (0-2.0); EOS % 2.6 % (0-4.5); HEMATOCRIT 40.1 % (32.4-45.2); HEMOGLOBIN 13.6 GM/dL (10.7-15.3); LYMPH % 40.4 % (8-40); MCH 31.4 pg (25.7-33.7); MCHC 33.9 g/dl (32.0-36.0); MEAN CELL VOLUME 92.6 fl (80-96); MEAN PLT VOLUME 8.4 fl (7.5-11.1); MONO % 7.9 % (3.8-10.2); NEUT % 48.5 % (42.8-82.8); PLATELET COUNT 220 K/MM3 (134-434); RBC 4.33 M/mm3 (3.60-5.2); RDW 14.1 % (11.6-15.6); WHITE BLOOD COUNT 5.2 K/mm3 (4.0-10.0)
[2018-12-17 07:31] LABS: ALBUMIN 3.9 g/dl (3.4-5.0); BILIRUBIN,TOTAL 0.2 mg/dL (0.2-1); CALCIUM 9.6 mg/dL (8.5-10.1); CREATININE 0.6 mg/dL (0.55-1.3); MAGNESIUM 2.4 mg/dL (1.8-2.4); POTASSIUM 3.7 mmol/L (3.5-5.1)
--- NOTE | 2018-12-17 07:55 | PN ---
Progress Note, Physician - Current Medication List Current Medications: Active Medications Amlodipine Besylate (Norvasc -) 5 mg PO DAILY [facility] Artificial Tears (Artificial Tears) 1 drop OU QID [facility] Last Admin: 12/16/18 22:36 Dose: 1 drop Aspirin (Ecotrin -) 81 mg PO DAILY [facility] Atorvastatin Calcium (Lipitor -) 40 mg PO HS [facility] Last Admin: 12/16/18 22:36 Dose: 40 mg Duloxetine HCl (Cymbalta -) 30 mg PO DAILY [facility] Nortriptyline HCl (Pamelor -) 10 mg PO [facility] Last Admin: 12/16/18 22:36 Dose: 10 mg Paroxetine HCl (Paxil -) 20 mg PO DAILY [facility] Pneumococcal 13-Valent Conj Vacc (Prevnar 13 Syringe -) 0.5 ml IM .ONCE ONE Stop: 12/17/18 10:01 Ranitidine HCl (Zantac -) 300 mg PO [facility] Last Admin: 12/16/18 22:36 Dose: 300 mg - Objective Vital Signs: Vital Signs Temperature 97.8 F 12/17/18 05:00 Pulse Rate 66 12/17/18 05:00 Respiratory Rate 18 12/17/18 05:00 Blood Pressure 119/79 12/17/18 05:00 O2 Sat by Pulse Oximetry (%) 96 12/16/18 21:00 Labs: CBC, BMP 12/17/18 06:15 12/17/18 06:15 - ....Imaging Ultrasound: Report Reviewed (Borderline hepatomegaly with fatty infiltration versus hepatocellular disease, 1.4 cm nonobstructing stone in the right mid kidney without gross evidence of hydronephrosis.) Problem List - Problems (1) Prophylactic measure Code(s): Z29.9 - ENCOUNTER FOR PROPHYLACTIC MEASURES, UNSPECIFIED (2) HLD (hyperlipidemia) Code(s): E78.5 - HYPERLIPIDEMIA, UNSPECIFIED (3) HTN (hypertension) Code(s): I10 - ESSENTIAL (PRIMARY) HYPERTENSION (4) Depression Code(s): F32.9 - MAJOR DEPRESSIVE DISORDER, SINGLE EPISODE, UNSPECIFIED (5) Atypical chest pain Code(s): R07.89 - OTHER CHEST PAIN (6) Chest pain Code(s): R07.9 - CHEST PAIN, UNSPECIFIED Qualifiers: Chest pain type: unspecified Qualified Code(s): R07.9 - Chest pain, unspecified (7) Vertigo Code(s): R42 - DIZZINESS AND GIDDINESS (8) Fibromyalgia Code(s): M79.7 - FIBROMYALGIA (9) Abdominal pain Code(s): R10.9 - UNSPECIFIED ABDOMINAL PAIN
[2018-12-17] MEDS: ARTIFICIAL TEARS (POLYVINYL ALCOHOL) OPTH DROPS OU SCH ×3 (09:56→14:57)
[2018-12-17] MEDS: DULoxetine HCL 30 MG CAPSULE.DR PO SCH ×2 (09:56→13:29)
[2018-12-17] MEDS: ASPIRIN COATED 81 MG TABLET.EC PO SCH ×2 (09:57→13:29)
[2018-12-17] MEDS: PARoxetine HCL 20 MG TABLET PO SCH ×2 (09:57→13:29)
[2018-12-17] MEDS ORDERED: PNEUMOCOCCAL 23 VACCINE 0.5 ML VIAL IM ONE (10:00)
[2018-12-17] MEDS ORDERED: amLODIPine BESYLATE 5 MG TABLET (FP) PO SCH (10:00)
[2018-12-17] MEDS ORDERED: PNEUMOC 13-VAL CONJ-DIP CRM/PF 0.5 ML DISP.SYRIN IM ONE (10:00)
[2018-12-17] MEDS ORDERED: PT OWN MED DRAWER 7, Y5N ONE ×2 (13:15→14:49)
[2018-12-17 14:57] VITALS: BP 140/104; PULSE 84; TEMP 98.1
--- NOTE | 2018-12-17 14:58 | ECHO ---
Name: HALEYBELINDA BURGOS Exam:Adult Echocardiogram Study Date: 12/17/2018 01:54 PM Age: 63 yrs Reason For Study: Chest pain Height: 63 in Weight: 210 lb BSA: 2.0 m2 MMode/2D Measurements & Calculations IVSd: 1.3 cm Ao root diam: 2.7 cm LVIDd: 3.2 cm LA dimension: 4.1 cm LVIDs: 2.0 cm ACS: 1.9 cm LVPWd: 1.5 cm EDV(Teich): 39.8 ml LVOT diam: 1.9 cm ESV(Teich): 13.1 ml RV S Juancho: 10.6 cm/sec Doppler Measurements & Calculations MV E max juancho: 67.4 cm/sec MV A max juancho: 89.2 cm/sec MV dec slope: 236.4 cm/sec2 MV E/A: 0.76 TR max juancho: 266.0 cm/sec Med Peak E' Juancho: 10.9 cm/sec TR max P.3 mmHg Med E/e': 6.2 Lat Peak E' Juancho: 10.2 cm/sec Lat E/e': 6.6 Procedure The study was non-diagnostic in quality. No definitive statements could be made about this echo due t o extremely poor acoustic windows. The study was technically difficult with many images being suboptima l in quality. Left Ventricle The left ventricular size, thickness and function are normal. The left ventricular ejection fraction is normal. Regional wall motion abnormalities cannot be excluded due to limited visualization. Right Ventricle The right ventricle is not well visualized. Atria The left atrium is mildly dilated. The right atrium is mildly dilated. Mitral Valve The mitral valve is not well visualized. Tricuspid Valve The tricuspid valve is not well visualized. There is no tricuspid stenosis. There is mild tricuspid regurgitation. Right ventricular systolic pressure is normal. Aortic Valve The aortic valve is not well visualized. Pulmonic Valve The pulmonic valve is not well visualized. Great Vessels The aortic root is normal size. Interpretation Summary The study was non-diagnostic in quality. No definitive statements could be made about this echo due t o extremely poor acoustic windows. The study was technically difficult with many images being suboptimal in quality. The left ventricular size, thickness and function are normal The left ventricular ejection fraction is normal. Regional wall motion abnormalities cannot be excluded due to limited visualization. The left atrium is mildly dilated. The right atrium is mildly dilated. The mitral valve is not well visualized. The tricuspid valve is not well visualized. There is mild tricuspid regurgitation. Right ventricular systolic pressure is normal. MD Yefri Medina 12/17/2018 02:57 PM
--- NOTE | 2018-12-17 15:37 | PN ---
Progress Note (short form) - Note Progress Note: s: no cp sob palps dizzy Vital Signs Period Temp Pulse Resp BP Sys/Horton Pulse Ox Last 24 Hr 97.8 F-98.1 F 66-106 18-18 119-142/66-104 96-96 Constitutional: Yes: No Distress, Calm Eyes: Yes: Conjunctiva Clear, EOM Intact HENT: Yes: Atraumatic, Normocephalic Neck: Yes: Trachea Midline Respiratory: Yes: CTA Bilaterally Gastrointestinal: Yes: Soft, Abdomen, Obese Cardiovascular: Yes: Regular Rate and Rhythm JVD: No PMI: Non-Displaced Heart Sounds: Yes: S1, S2 (rrr, no m/r/g) Edema: No Neurological: Yes: Alert, Oriented Current Medications Generic Name Dose Route Start Last Admin Trade Name Freq PRN Reason Stop Dose Admin Amlodipine Besylate 5 mg 12/17/18 10:00 12/17/18 09:26 Norvasc - PO 5 mg DAILY [facility] Administration Artificial Tears 1 drop 12/16/18 18:00 12/17/18 14:57 Artificial Tears OU 1 drop QID [facility] Administration Aspirin 81 mg 12/17/18 10:00 12/17/18 13:29 Ecotrin - PO 81 mg DAILY [facility] Administration Atorvastatin Calcium 40 mg 12/16/18 22:00 12/16/18 22:36 Lipitor - PO 40 mg HS [facility] Administration Duloxetine HCl 30 mg 12/17/18 10:00 12/17/18 13:29 Cymbalta - PO 30 mg DAILY [facility] Administration Nortriptyline HCl 10 mg 12/16/18 22:00 12/16/18 22:36 Pamelor - PO 10 mg HS [facility] Administration Paroxetine HCl 20 mg 12/17/18 10:00 12/17/18 13:29 Paxil - PO 20 mg DAILY [facility] Administration Ranitidine HCl 300 mg 12/16/18 22:00 12/16/18 22:36 Zantac - PO 300 mg HS [facility] Administration CBC, BMP 12/17/18 06:15 12/17/18 06:15 Imaging - Results Chest X-ray: Image Reviewed (no acute path) Ultrasound: Report Reviewed (renal stone, non-obstx) EKG: Image Reviewed (NSR, LAE, NSST) Assessment/Plan IMP: HTN, chronic Chest pain syndrome, chronic: suspect MSK HLD GERD Renal stone, non-obstx/ incidental REC: 1. Echo TDS but unremarkable here 2. MIBI wnl 3. BP improved on current meds cardiac glilette stable for dc
--- NOTE | 2018-12-17 17:01 | DS ---
Physical Exam: SUBJECTIVE: Patient seen and examined OBJECTIVE: Vital Signs Period Temp Pulse Resp BP Sys/Horton Pulse Ox Last 24 Hr 97.8 F-98.1 F 66-106 18-18 119-142/66-104 96-96 PHYSICAL EXAM GENERAL: The patient is awake, alert, and fully oriented, in no acute distress. HEAD: Normal with no signs of trauma. EYES: PERRL, extraocular movements intact, sclera anicteric, conjunctiva clear. ENT: Ears normal, nares patent, oropharynx clear without exudates, moist mucous membranes. NECK: Trachea midline, full range of motion, supple. LUNGS: Breath sounds equal, clear to auscultation bilaterally, no wheezes, no crackles, no accessory muscle use. HEART: Regular rate and rhythm, S1, S2 without murmur, rub or gallop. ABDOMEN: Soft, nontender, nondistended, normoactive bowel sounds, no guarding, no rebound, no hepatosplenomegaly, no masses. EXTREMITIES: 2+ pulses, warm, well-perfused, no edema. NEUROLOGICAL: Cranial nerves II through XII grossly intact. Normal speech, gait not observed. PSYCH: Normal mood, normal affect. SKIN: Warm, dry, normal turgor, no rashes or lesions noted. LABS Laboratory Results - last 24 hr 12/16/18 12/16/18 12/17/18 15:20 21:00 06:15 WBC 5.2 RBC 4.33 Hgb 13.6 Hct 40.1 MCV 92.6 MCH 31.4 MCHC 33.9 RDW 14.1 Plt Count 220 MPV 8.4 Absolute Neuts (auto) 2.5 Neutrophils % 48.5 Lymphocytes % 40.4 H Monocytes % 7.9 Eosinophils % 2.6 Basophils % 0.6 Nucleated RBC % 0 Sodium Potassium Chloride Carbon Dioxide Anion Gap BUN Creatinine Est GFR (CKD-EPI)AfAm Est GFR (CKD-EPI)NonAf Random Glucose Calcium Magnesium Total Bilirubin AST ALT Alkaline Phosphatase Creatine Kinase 95 Troponin I < 0.02 Total Protein Albumin Urine Color Yellow Urine Appearance Clear Urine pH 6.5 Ur Specific [place] 1.010 Urine Protein Negative Urine Glucose (UA) Negative Urine Ketones Negative Urine Blood Trace-intact Urine Nitrite Negative Urine Bilirubin Negative Urine Urobilinogen 0.2 Ur Leukocyte Esterase Negative 12/17/18 06:15 WBC RBC Hgb Hct MCV MCH MCHC RDW Plt Count MPV Absolute Neuts (auto) Neutrophils % Lymphocytes % Monocytes % Eosinophils % Basophils % Nucleated RBC % Sodium 141 Potassium 3.7 Chloride 106 Carbon Dioxide 28 Anion Gap 7 L BUN 10.0 Creatinine 0.6 Est GFR (CKD-EPI)AfAm 111.64 Est GFR (CKD-EPI)NonAf 96.33 Random Glucose 110 H Calcium 9.6 Magnesium 2.4 Total Bilirubin 0.2 AST 33 ALT 40 Alkaline Phosphatase 79 Creatine Kinase Troponin I Total Protein 7.0 Albumin 3.9 Urine Color Urine Appearance Urine pH Ur Specific [place] Urine Protein Urine Glucose (UA) Urine Ketones Urine Blood Urine Nitrite Urine Bilirubin Urine Urobilinogen Ur Leukocyte Esterase HOSPITAL COURSE: Date of Admission:12/16/18 Date of Discharge: 12/17/18 Minutes to complete discharge: 35 Discharge Summary Reason For Visit: CHEST PAIN Current Active Problems Abdominal pain (Acute) Atypical chest pain (Acute) Depression (Acute) Fibromyalgia (Acute) HLD (hyperlipidemia) (Acute) HTN (hypertension) (Acute) Prophylactic measure (Acute) Condition: Improved - Instructions Diet, Activity, Other Instructions: You underwent a cardiac stress test and it was normal. The echocardiogram was also normal. You can follow with Dr Hodge. Resume all your home medications and diet. Call your primary care provider and make an appointment in 2 weeks. If you have any further complaints of chest pain call your primary care provider/ Dr Castaneda or return back to the ED Disposition: HOME - Home Medications Comprehensive Discharge Medication List: Ambulatory Orders Amlodipine Besylate [Norvasc -] 5 mg PO DAILY 12/16/18 Duloxetine HCl [Cymbalta] 30 mg PO DAILY 12/16/18 Nortriptyline HCl [Pamelor -] 10 mg PO HS 12/16/18 Paroxetine HCl [Paxil] 20 mg PO DAILY 12/16/18 Polyvinyl Alcohol [Artificial Tears] 1 drop OU ASDIR 12/16/18 Ranitidine [Zantac -] 300 mg PO HS 12/16/18 Simvastatin 40 mg PO HS 12/16/18 Aspirin Coated [Ecotrin -] 81 mg PO DAILY tablet.ec 12/17/18 Problem List - Problems (1) Prophylactic measure Code(s): Z29.9 - ENCOUNTER FOR PROPHYLACTIC MEASURES, UNSPECIFIED (2) HLD (hyperlipidemia) Code(s): E78.5 - HYPERLIPIDEMIA, UNSPECIFIED (3) HTN (hypertension) Code(s): I10 - ESSENTIAL (PRIMARY) HYPERTENSION (4) Depression Code(s): F32.9 - MAJOR DEPRESSIVE DISORDER, SINGLE EPISODE, UNSPECIFIED (5) Atypical chest pain Code(s): R07.89 - OTHER CHEST PAIN (6) Chest pain Code(s): R07.9 - CHEST PAIN, UNSPECIFIED Qualifiers: Chest pain type: unspecified Qualified Code(s): R07.9 - Chest pain, unspecified (7) Vertigo Code(s): R42 - DIZZINESS AND GIDDINESS (8) Fibromyalgia Code(s): M79.7 - FIBROMYALGIA (9) Abdominal pain Code(s): R10.9 - UNSPECIFIED ABDOMINAL PAIN
== END 2018-12-17 19:21 | disposition home or self-care (01) | DRG 203 ==
LOC: JER 11:25 → SUPCPDRO 11:25 → JERBED 16:03 → J4W 18:39
PROVIDERS: ATTEND Nurse Practitioner Acute Care
DX: R07.89 Other chest pain (principal); I10 Essential (primary) hypertension; E78.5 Hyperlipidemia, unspecified; M79.7 Fibromyalgia; R73.03 Prediabetes; F32.9 Major depressive disorder, single episode, unspecified; K21.9 Gastro-esophageal reflux disease without esophagitis; N20.0 Calculus of kidney; R42 Dizziness and giddiness; R10.9 Unspecified abdominal pain
CPT/HCPCS: 36415; 71046-TC-FY; 76705-TC; 78452-TC; 80053; 81003; 82550; 83690; 83735; 84484; 85025; 87077; 87086; 93005; 93010; 93017; 93306-TC; 99284-25; A9502